=== PATIENT | male | born 1970 | race Hispanic/Latino ===

== ENCOUNTER → 2024-04-19 | Day surgery (SDC) | payer OTHER ==
[~2024-04-19] MED LIST: DEXMEDETOMIDINE HCL 2 ML ONE; EPHEDRINE SULFATE INJ 50 MG/ML VIAL ONE; LIDOCAINE HCL 2% LOCAL INJ 5 ML SDV VIAL INJ ONE; LIPITOR10 MG PO; MIDAZOLAM HCL 2 MG/2 ML VIAL ONE; PROPOFOL IV EMULSION 10 MG/ML 20 ML VIAL ONE; SODIUM CHLORIDE 0.9% 100 ML ONE; ZESTRIL10 MG PO
[2024-04-19] MEDS: LACTATED RINGER'S 1,000 ML ONE (07:14)
[2024-04-19 08:14] VITALS: TEMP 98.1
[2024-04-19 08:30] VITALS: BP 109/70; PULSE 85; RESP 16; O2SAT 97
== END | disposition home or self-care (01) ==
LOC: OR 06:15
PROVIDERS: ATTEND Internal Medicine Gastroenterology
DX: Z12.11 Encounter for screening for malignant neoplasm of colon (principal); D12.3 Benign neoplasm of transverse colon; D12.4 Benign neoplasm of descending colon; K52.9 Noninfective gastroenteritis and colitis, unspecified; K63.3 Ulcer of intestine; K64.8 Other hemorrhoids; I10 Essential (primary) hypertension; E78.5 Hyperlipidemia, unspecified; I45.10 Unspecified right bundle-branch block; Z01.810 Encounter for preprocedural cardiovascular examination; Z79.899 Other long term (current) drug therapy; Z68.37 Body mass index [BMI] 37.0-37.9, adult
CPT/HCPCS: 45380; 45384; 93005; J2003; J2250; J2704; J7050; J7121; 45378